=== PATIENT | male | born 1960 | race African-American/Black ===

== ENCOUNTER 2021-04-10 10:50 | Emergency (ER) | payer MEDICAID ==
[~2021-04-10] VITALS: Ht 172.7 cm; Wt 63.0 kg
[~2021-04-10 10:50] MED LIST: AMMO240L2 TP; BENZ0.5T43 PO; DIVA500T51 PO; LEVO500T2 PO; OLAN2.5T29 PO; PARO-41 PO; PROP10TA10 PO; QUET100T PO; QUET25TA PO; SIMV-43 PO; TRAZ150T78 PO
[2021-04-10 11:00] VITALS: BP 109/72
== END 2021-04-10 12:35 | disposition home or self-care (01) ==
LOC: ER 10:50
DX: M79.672 Pain in left foot (principal); Z79.899 Other long term (current) drug therapy
CPT/HCPCS: 73620; 73630; 99284